=== PATIENT | male | born 1945 | race Two or more races ===

== ENCOUNTER 2024-09-13 09:40 | Day surgery (SDC) | payer MEDICARE, MEDICAID, SELFPAY ==
[2024-09-13] VITALS (8 sets, daily range): BP systolic 107–146; BP diastolic 53–82; PULSE 52–70; RESP 9–22; TEMP 36.2–36.4; O2SAT 96–100; BMI 24.2
[2024-09-13] MEDS: DiphenhydrAMINE INJ 50 MG/ML VIAL 25 MG IV (11:13)
[2024-09-13] MEDS: MIDAZOLAM INJ 1 MG/ML VIAL 2 ML (ASD USE ONLY) 2 MG IV (11:16)
[2024-09-13] MEDS: fentaNYL CIT INJ 50 mCg/ML AMP 2ML (ASD USE ONLY) IV (11:16)
--- NOTE | 2024-09-13 12:23 | SUR.PHASEII ---
1200 Pt more awake and alert. Denies pain or N/V. Abd remains soft. Pt arturo PO fluids. 1218 Pt assessment unchanged. Amb with steady gait. Able to dress self. Pt and given dc instructions. Aware of new meds phoned into [facility] by Dr Alvarado. Both state understanding. Pt meets DC criteria-to home.
== END 2024-09-13 12:18 | disposition home or self-care (01) ==
PROVIDERS: PCP Nurse Practitioner Family; Referring Provider Specialist; Visit Provider Specialist
PROC: 0DBE8ZX Excision of Large Intestine, Via Natural or Artificial Opening Endoscopic, Diagnostic (ICD-10-PCS; CPT 45380; principal; 2024-09-13 10:15)
DX: K52.9 Noninfective gastroenteritis and colitis, unspecified (principal); K63.89 Other specified diseases of intestine; K62.89 Other specified diseases of anus and rectum; K64.9 Unspecified hemorrhoids
CPT/HCPCS: 45380; A4649; J1200; J2250; J3010